=== PATIENT | female | born 1960 | race Caucasian/White ===

== ENCOUNTER → 2016-11-14 | Outpatient (CLI) | payer BC, OTHER ==
[2016-11-14 13:54] LABS: BASO % 0.3 %; BASO ABS # 0.02 K/uL (0-0.2); COMPLETE YES; EOS % 1.9 %; HEMATOCRIT 39.3 % (37-47); IG% 0.1 %; LYMPH % 30.6 %; MEAN CELL VOLUME 88.3 fL (80-100); MEAN CORPUSCULAR HEMOGLOBIN 30.6 pg (25-34); MEAN CORPUSCULAR HGB CONC 34.6 g/dl (32-36); MEAN PLATELET VOLUME 10.6 fL (7.4-10.4); MONO % 4.7 %; NEUT % 62.4 %; PLATELET COUNT 265 K/uL (130-400); RED BLOOD COUNT 4.45 M/uL (4.2-5.4); WHITE BLOOD COUNT 7.85 K/uL (4.8-10.8)
[2016-11-14 17:13] LABS: ALT/SGPT 23 U/L (12-78); BLOOD UREA NITROGEN 10 mg/dl (7-18); BUN/CREATININE RATIO 14.1 (10-20); CALCIUM 9.1 mg/dl (8.5-10.1); CARBON DIOXIDE 29 mmol/L (21-32); CHLORIDE 106 mmol/L (98-107); CHOLESTEROL 252 mg/dl (0-200); CREATININE 0.68 mg/dl (0.60-1.20); GLUCOSE 90 mg/dl (70-99); POTASSIUM 4.1 mmol/L (3.5-5.1); SODIUM 140 mmol/L (136-145)
[2016-11-14 17:13] LABS: URINE APPEARANCE CLEAR (CLEAR); URINE BILIRUBIN NEG (NEG); URINE COLOR YELLOW; URINE NITRITE NEG (NEG); URINE SPECIFIC GRAVITY 1.009 (1.000-1.030); UROBILINOGEN NEG (NEG)
[2016-11-14 17:19] LABS: MANUAL MICROSCOPIC REQUIRED? NO; REVIEW REQ? NO
[2016-11-14 17:23] LABS: ALB/GLOB RATIO 1.1 (0.9-2); ALKALINE PHOSPHATASE 80 U/L (45-117); AST/SGOT 13 U/L (15-37); CHOLESTEROL/HDL RATIO 4.4; HDL CHOLESTEROL 57 mg/dl; LDL CHOLESTEROL CALCULATED 144 mg/dl; TRIGLYCERIDES 254 mg/dl (0-150); VERY LOW DENSITY LIPOPROT CALC 51 mg/dl
== END | disposition home or self-care (01) ==
LOC: C.LABBC 12:13
PROVIDERS: ATTEND Nurse Practitioner Adult Health
DX: Z00.00 Encounter for general adult medical examination without abnormal findings (principal); R39.9 Unspecified symptoms and signs involving the genitourinary system

== ENCOUNTER → 2016-11-21 | Outpatient (CLI) | payer OTHER ==
[2016-11-21 15:16] LABS: URINE APPEARANCE CLEAR (CLEAR); URINE BILIRUBIN NEG (NEG); URINE COLOR YELLOW; URINE EPITHELIAL CELL AUTO >30 /lpf (0-5); URINE NITRITE NEG (NEG); URINE PH 7.5 (4.5-7.5); URINE SPECIFIC GRAVITY 1.015 (1.000-1.030); UROBILINOGEN NEG (NEG)
[2016-11-21 15:22] LABS: MANUAL MICROSCOPIC REQUIRED? NO; REVIEW REQ? YES
[2016-11-21 15:24] LABS: SULFASALICYLIC ACID POS (NEG)
== END | disposition home or self-care (01) ==
LOC: C.LABBC 09:33
PROVIDERS: ATTEND Nurse Practitioner Adult Health
DX: R31.29 Other microscopic hematuria (principal)

== ENCOUNTER → 2016-12-05 | Outpatient (CLI) | payer OTHER | END | disposition home or self-care (01) | LOC: C.LABSPEC 14:08 | PROVIDERS: ATTEND Physician Assistant | DX: N94.9 Unspecified condition associated with female genital organs and menstrual cycle (principal) ==

== ENCOUNTER → 2016-12-05 | Outpatient (CLI) | payer OTHER ==
[2016-12-14 06:17] LABS: HPV 16 RNA DETECTED (NOT DETECTED); HPV 18 45 RNA NOT DETECTED (NOT DETECTED)
== END | disposition home or self-care (01) ==
LOC: C.PAPS 07:59
PROVIDERS: ATTEND Physician Assistant
DX: Z12.4 Encounter for screening for malignant neoplasm of cervix (principal)

== ENCOUNTER → 2016-12-12 | Outpatient (CLI) | payer OTHER | END | disposition home or self-care (01) | LOC: C.PATHSPEC 12:25 | PROVIDERS: ATTEND Obstetrics & Gynecology | DX: N90.89 Other specified noninflammatory disorders of vulva and perineum (principal) ==

== ENCOUNTER → 2017-01-02 | Outpatient (CLI) | payer OTHER ==
--- NOTE | 2017-01-02 11:15 | DIAGNOSTIC IMAGING REPORT ---
PET/CT SKULL-THIGH CLINICAL HISTORY: VULVA CANCER COMPARISON STUDY: No previous studies for comparison. FINDINGS: The patient was injected with 13.6 mCi of F 18 labeled FDG. Following the standard induction phase, PET/CT scanning was performed from the skull base to the upper thigh region. Within the neck, there is no pathologic FDG activity. Within the thorax, there is no pathologic eliazar activity. There are multiple bilateral subcentimeter pulmonary nodules. Although these are not significantly FDG avid, metastatic disease remains a diagnosis of exclusion. There is no pathologic hepatic activity. There is FDG avid left-sided para-aortic adenopathy with nodes demonstrating an SUV maximum of up to 4.3. Nodes measure up to 11 mm in diameter. There is FDG avid left iliac chain and pelvic sidewall adenopathy. An index left Demario sidewall node is an SUV maximum of 5.2 and measures 36 mm. There is FDG avid left inguinal adenopathy. There is a 6 cm left inguinal lymph node with an SUV maximum of 12 . There is increased activity in the vulvar region. There is also FDG avid left femoral lymph node with SUV maximum of 8.7. There is left leg edema, likely secondary to compression from the above-mentioned adenopathy. Incidental note is made of cholelithiasis. There is a 33 mm non-FDG avid right hepatic hypodense lesion likely representing a cyst. IMPRESSION: 1. FDG activity within the vulva, likely corresponding to the patient's known vulvar mass 2. Pathologic FDG adenopathy involving the para-aortic nodes, left iliac nodes, left inguinal nodes, and left femoral nodes. The findings are consistent with metastatic adenopathy 3. There is secondary left leg edema. 3. Multiple subcentimeter pulmonary nodules. Although not FDG avid (likely secondary to the small size), metastatic disease is deemed the diagnosis of exclusion. Electronically signed by: Garth Nuñez M.D. 01/02/2017 11:14 AM Dictated Date/Time: 01/02/2017 11:02 AM
== END | disposition home or self-care (01) ==
LOC: C.PET 07:36
PROVIDERS: ATTEND Obstetrics & Gynecology
DX: C51.9 Malignant neoplasm of vulva, unspecified (principal); R91.1 Solitary pulmonary nodule

== ENCOUNTER → 2017-01-17 | Outpatient (CLI) | payer OTHER ==
--- NOTE | 2017-01-18 14:21 | PULMONARY FUNCTION TEST ---
Spirometry is within the limits of normal. The mid flow rates were 69% of predicted. This is not definitively abnormal. However, cannot exclude small airways dysfunction. Flow volume loops were normal. Diffusion capacity is normal at 80% of predicted.
== END | disposition home or self-care (01) ==
LOC: C.RC 08:52
PROVIDERS: ATTEND Specialist
DX: R91.8 Other nonspecific abnormal finding of lung field (principal)

== ENCOUNTER → 2017-06-16 | Outpatient (CLI) | payer OTHER ==
--- NOTE | 2017-06-16 14:48 | DIAGNOSTIC IMAGING REPORT ---
L VENOUS DOPP LOWER EXT UNILAT CLINICAL HISTORY: 56 years-old Female presenting with L LOWER LIMB SWELLING. TECHNIQUE: Real-time grayscale and color and spectral Doppler ultrasound imaging of the veins of the left lower extremity was performed. Compression and augmentation were also utilized. COMPARISON: None. FINDINGS: Left: Common femoral vein: Occlusive filling defect consistent with thrombus. Greater saphenous vein: Occlusive filling defect consistent with thrombus. Deep femoral vein: Nonocclusive filling defect consistent with thrombus. Femoral vein: Occlusive filling defect consistent with thrombus in the proximal vein. The mid to distal left femoral vein is not visualized. Popliteal vein: Patent. Calf veins: Limited visualization. Other: 3.3 x 2.8 x 2.7 cm simple appearing avascular collection medial to the left femoral vessels, possibly a lymphocele. IMPRESSION: 1. Occlusive deep venous thrombosis in the common femoral vein and proximal femoral vein. The mid to distal left femoral vein is not visualized and may also contain thrombus. Thrombus also noted in the greater saphenous vein and deep femoral vein. 2. Suspected lymphocele in the left inguinal region. The report will be called/faxed according to standard departmental protocol. Electronically signed by: Alonzo Reyes M.D. 06/16/2017 2:47 PM Dictated Date/Time: 06/16/2017 2:44 PM
== END | disposition home or self-care (01) ==
LOC: C.ULTR 13:14
PROVIDERS: ATTEND Internal Medicine Hematology & Oncology
DX: C51.8 Malignant neoplasm of overlapping sites of vulva (principal); I82.412 Acute embolism and thrombosis of left femoral vein; I82.812 Embolism and thrombosis of superficial veins of left lower extremity

== ENCOUNTER → 2017-07-10 | Outpatient (CLI) | payer OTHER ==
[~2017-07-10] MED LIST: ACET500T58 PO; AZAT50TA17 PO; DIPH25CA5 PO; FEXO3TAB; OMEP10CA4 PO; VSNOPS INT OCU; WARF5TAB7 PO
--- NOTE | 2017-07-10 13:02 | DIAGNOSTIC IMAGING REPORT ---
PET/CT CLINICAL HISTORY: Vulvar squamous cell carcinoma. Left lung nodule suspicious for squamous cell carcinoma. TECHNIQUE: A PET/CT was performed from the skull base through the upper thighs following intravenous injection of 12.36 mCi of F 18 FDG IV. The injection was performed at 8:33 AM on July 10, 2017 and imaging began at 9:56 AM on July 10, 2017. Unenhanced CT was performed for attenuation correction purposes and anatomic localization. COMPARISON STUDY: PET/CT January 02, 2017. FINDINGS: Head and neck: No abnormal FDG uptake is identified within the neck. There is no cervical lymphadenopathy. Chest: A 7 mm nodule within the apicoposterior segment of the left upper lobe shown on image 80 has increased in size since PET/CT of January 02, 2017 when it measured 5 mm. This nodule has mild FDG uptake with an SUV max of 3.7 which has developed since previous exam. A 6 cm subpleural nodule within the superior segment of the right lower lobe shown on image 84 has also increased in size since previous exam when it measured 3 mm. Several larger lung nodule shown on exam of January 02, 2017 have resolved including a 9 mm left lower lobe lesion. The findings suggest a mixed response within the lungs. Abdomen and Pelvis: A right hepatic lobe cyst is noted as well as gallstones. No abdominal lymphadenopathy is present. Para-aortic and left iliac lymphadenopathy has significantly improved since exam of January 02, 2017. A left pelvic sidewall lymph node now measures 2.5 x 1.7 cm. It previously measured 3.6 x 1.9 cm. This has minimal residual FDG uptake with an SUV max of 2.5. It previously measured 5.2. This may be partially necrotic. A 4.9 x 3.4 cm partially necrotic left inguinal mass has decreased in size and FDG avidity since prior exam. The lesion previously measured 6 x 4.1 cm. SUV max is now 6.5. It previously measured 14. Vulvar uptake has diminished and may reflect treatment response of the primary lesion. The SUV max is now 3.5. It previously measured 10.2. Additional left inguinal lymph nodes shown previous exam are now normal in size without FDG uptake. Musculoskeletal: No suspicious skeletal uptake is identified. IMPRESSION: 1. Overall, improvement in FDG avid disease since previous exam of January 02, 2017. Interval improvement in para-aortic, left iliac and inguinal lymphadenopathy since PET/CT of January 02, 2017. Moderate residual peripheral FDG uptake within the dominant partially necrotic left inguinal lymph node was has significantly improved since previous exam. Mild residual uptake with a left pelvic sidewall lymph node which has improved. Interval resolution of multiple additional FDG avid lymph nodes. 2. Findings suggestive of a mixed treatment response within the lungs. Interval resolution of multiple lung nodules with interval increase in size of several small pulmonary nodules, one of which is FDG avid within the left upper lobe. Electronically signed by: Amol Juares M.D. 07/10/2017 1:00 PM Dictated Date/Time: 07/10/2017 11:25 AM
== END | disposition home or self-care (01) ==
LOC: C.PET 07:59
PROVIDERS: ATTEND Internal Medicine Hematology & Oncology
DX: C51.8 Malignant neoplasm of overlapping sites of vulva (principal)